=== PATIENT | female | born 1990 | race Caucasian/White ===

== ENCOUNTER → 2016-07-19 | Outpatient (CLI) | payer OTHER ==
--- NOTE | 2016-07-19 18:21 | CONS ---
DATE OF CONSULTATION: 07/19/2016 CONSULTATION/NEW PATIENT EVALUATION 25-year-old lady who has been evaluated in the sleep center problem related to difficulties initiating sleep and multiple awakenings during the sleep and feeling tiredness and sometimes sleepiness during the day. HISTORY OF PRESENT ILLNESS/SLEEP-WAKE EVALUATION: SLEEP SCHEDULE: Patient's usual sleep schedule is from around 11:00 p.m. until 11:00 a.m. FALLING ASLEEP: The patient has problems with falling asleep. She is on treatment and the trazodone at bedtime and it helps her to fall asleep. She has a TV set in bedroom. DURING SLEEP: She wakes up from sleep up to 3 times with up to 2 episodes of nocturia. According to her mother, she snores, positive history of hypnagogic hallucinations by falling asleep. No history of sleep paralysis or cataplexy. [place] Sleepiness Scale is 4. Also positive history of movements at night, kicking the patient covers sometimes out in the morning. DURING THE DAY/WAKE STATE: PAST MEDICAL HISTORY: Positive for ADD, anxiety. PAST SURGICAL HISTORY: Tonsillectomy. MEDICATIONS: 1. Paxil. 2. ( ). 3. Trazodone. SOCIAL HISTORY: Positive for smoking for about half pack a day for 3 years. Alcohol consumption occasional. REVIEW OF SYSTEMS: Multiple awakenings from sleep. Sometimes tiredness and sleepiness during the day. No fevers. No double vision. No recent chest pain. No shortness of breath. No abdominal pain. No bleeding episodes. No blood in urine. No seizure episodes. FAMILY HISTORY: Heart problems, hyperlipidemia, snoring, acid reflux. PHYSICAL EXAMINATION: During physical exam lady without distress. VITAL SIGNS: BP 110/72, HR 88, RR 16. Height 5 feet 6-1/2. Weight 182. BMI 28.9. Neck 14 inches in circumference. Temperature 98.3. Oxygen saturation at room air 90%. HEENT: Oropharynx practically normal position of soft palate refusing. NECK: Supple. No JVD. Thyroid is not palpable. LUNGS: Clear to percussion and to auscultation. Good air exchange. No wheezing or rhonchi. HEART: S1, S2 regular. No murmurs, gallops or rubs. ABDOMEN: Slightly obese. Soft and nontender. Bowel sounds are present. No organomegaly appreciated. EXTREMITIES: No clubbing or cyanosis. GRAIN LOADER: Awake, alert, and oriented x3. Cranial nerves 2 to 7 intact. There is no fasciculation or atrophy noted. No focal deficits observed. IMPRESSION: 1. Snoring, multiple awakenings from sleep rule out obstructive sleep apnea-hypopnea syndrome. 2. Positive history of kicking at night cover sometimes out in the morning, periodic limb movement syndrome. 3. Difficulties to initiate sleep, insomnia, probably secondary to anxiety. 4. Positive history of questionable hypnagogic hallucinations, differential diagnosis include hypersomnia including narcolepsy. 5. Status post tonsillectomy. 6. History of attention deficit hyperactivity disorder. PLAN: 1. Polysomnography for evaluation of patient's breathing during sleep. 2. CPAP/BiPAP titration if sleep study confirms obstructive sleep apnea-hypopnea syndrome. 3. Preferable position during sleep on the side. 4. No driving if patient feels any sleepiness. Patient is aware of civil and criminal liability for unsafe driving. 5. I will see patient for follow-up visit to explain results of the testing and following plan. 6. Multiple sleep latency test if sleep study been negative for obstructive sleep apnea or periodic limb movements. 7. Psychological techniques for treatment of insomnia should include stimulus control, worry time, paradoxical intention. No watching clock. Thank you very much for referring this patient for consultation. Sincerely, Anthony Aggarwal MD, PhD, FAASM. Diplomat of [place] [employer], Sleep Medicine Board by [place] [employer] [place] [employer] [facility] [place]
== END ==
LOC: SLEEP 14:14
PROVIDERS: ATTEND Internal Medicine
DX: R06.83 Snoring (principal); G47.61 Periodic limb movement disorder; Z87.891 Personal history of nicotine dependence; Z79.899 Other long term (current) drug therapy
CPT/HCPCS: 99211

== ENCOUNTER → 2016-08-09 | Outpatient (CLI) | payer OTHER ==
--- NOTE | 2016-08-09 19:28 | PN ---
DATE OF SERVICE: 08/09/2016 25-year-old lady who has been followed in the sleep center to discuss results of the sleep studies and plan of treatment. I discussed with the patient results of polysomnogram and multiple sleep latency test in detail. No significant respiratory abnormalities during polysomnogram following results of scoring hypopneas with 4% of oxygen desaturation criteria. Apnea-hypopnea index only 1.4. No significant oxygen desaturation. Lowest oxygen level 90.5%, very minimal periodic limb movements without significant amount of microarousals. Multiple sleep latency test showed normal mean sleep latency more than 15 minutes. Four sleep onset REM periods have been documented but with absence of documented sleepiness that does not have diagnostic significance. 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 Patient continued to do to feel tiredness and she agreed that she felt tired but not sleepy. MEDICATIONS: 1. Paxil. 2. Vyvanse. 3. Trazodone. During physical exam, the patient in no distress. VITAL SIGNS: BP 111/73, HR 84, RR 16. Height 5 foot 6. Weight 178. BMI 28, temperature 98.4. Oxygen saturation at room air 99%. HEENT: PERRLA, EOMI evaluation of oropharynx showed moderately low position of soft palate. Neck: Supple. No JVD. Thyroid is not palpable. LUNGS: Clear to percussion and to auscultation. Good air exchange. No wheezing or rhonchi. HEART: S1, S2 regular. No murmurs, gallops, or rubs. ABDOMEN: Soft and nontender. Bowel sounds are present. No organomegaly appreciated. EXTREMITIES: No clubbing or cyanosis. LOGISTICS SOLUTION MANAGER: Awake, alert, and oriented x3. Cranial nerves 2 to 7 intact. There is no fasciculation or atrophy noted. No focal deficits observed. IMPRESSION: 1. No significant respiratory abnormalities during the sleep study. 2. Multiple sleep latency test showed normal sleep latency. 3. Sleep onset REM periods documented during MSLT which is not diagnostic for narcolepsy because there was no documented sleepiness. 4. Possible sleep delay syndrome, which may be could explain the presence of REM sleep during MSLT. 5. History of attention deficit hyperactivity disorder. 6. History of anxiety. 7. Mild snoring documented during the sleep study. PLAN: 1. Sleep hygiene with regular time in bed 8-9 hours. 2. Losing weight. 3. Preferably to sleep on the side. 4. No driving if feeling any sleepiness. 5. With the present patient complains of tiredness during the day, consider to change regimen of medication for anxiety. Thank you very much for allowing me to participate in the management of your patient. Sincerely, Anthony Aggarwal MD, PhD, FAASM. Diplomat of [place] [employer], Sleep Medicine Board by [place] [employer] [place]
== END | disposition home or self-care (01) ==
LOC: SLEEP 14:18
PROVIDERS: ATTEND Internal Medicine
DX: R53.83 Other fatigue (principal); R06.83 Snoring; Z79.899 Other long term (current) drug therapy

== ENCOUNTER 2017-03-04 15:55 | Emergency (ER) | payer OTHER ==
[2017-03-04 17:01] LABS: Appearance,Urine Cloudy (Clear); Bilirubin,Urine Negative (Negative); Blood,Urine Moderate (Negative); Color,Urine Light Red; Glucose,Urine (UA) Negative (Negative); Hyaline Casts,Urine 20 /lpf (0-2); Ketones,Urine 4+ (Negative); Leukocyte Esterase,Urine Small (Negative); Mucus,Urine Many /hpf; Nitrite,Urine Negative (Negative); PH, Urine 8.5 (5.0-8.0); Protein,Urine 2+ (Negative); RBC,Urine >182 /hpf (0-5); Specific Gravity,Urine 1.029 (1.001-1.035); Squamous Epithelial Cell,Urine 33 /hpf (0-4); WBC,Urine 2 /hpf (0-5)
[2017-03-04 17:03] LABS: Basophils % (A) 0 %; Eosinophils % (A) 0 %; HCT 42.7 % (34.0-46.0); HGB 14.2 gm/dL (11.4-16.0); Lymphocytes # (A) 0.9 k/uL (1.0-4.8); Lymphocytes % (A) 6 %; MCH 32.4 pg (25.0-35.0); MCHC 33.2 g/dL (31.0-37.0); MCV 97.5 fL (80.0-100.0); Mean Platelet Volume 8.2; Monocytes # (A) 0.6 k/uL (0-1.0); Monocytes % (A) 4 %; Neutrophils # (A) 13.7 k/uL (1.3-7.7); Neutrophils % (A) 89 %; Platelet Count 287 k/uL (150-450); RBC 4.38 m/uL (3.80-5.40); RDW 12.8 % (11.5-15.5); WBC 15.4 k/uL (3.8-10.6)
[2017-03-04 17:11] LABS: ALT 35 U/L (9-52); AST 24 U/L (14-36); Albumin 4.5 g/dL (3.5-5.0); Alkaline Phosphatase 72 U/L (38-126); Anion Gap 9 mmol/L; Blood Urea Nitrogen 10 mg/dL (7-17); Calcium 10.1 mg/dL (8.4-10.2); Carbon Dioxide 29 mmol/L (22-30); Chloride 105 mmol/L (98-107); Glucose 137 mg/dL (74-99); Potassium 3.7 mmol/L (3.5-5.1); Sodium 143 mmol/L (137-145); Total Bilirubin 0.7 mg/dL (0.2-1.3); Total Protein 7.5 g/dL (6.3-8.2)
[2017-03-04] MEDS ORDERED: KETOROLAC 30 MG/ML 1 ML VIAL IVP ONE (17:43)
[2017-03-04] MEDS ORDERED: SODIUM CHLORIDE 0.9% 1,000 ML IV ONE (17:45)
--- NOTE | 2017-03-04 17:47 | ED ---
Abdominal Pain HPI - General Chief Complaint: Abdominal Pain Stated Complaint: Vomiting Time Seen by Provider: 03/04/17 16:28 Source: patient Mode of arrival: wheelchair Limitations: no limitations - History of Present Illness Initial Comments: Joy is a 26-year-old female with no significant past medical history presents to the emergency department today for evaluation of right lower quadrant abdominal pain. Patient reports she woke around 9 AM with a severe stabbing in her right flank that is radiating towards her right pelvis. Pain is progressively worsened throughout the day become unbearable. Pain is associated with nausea and multiple episodes of nonbloody nonbilious emesis. Patient denies any hematuria, dysuria, urinary frequency. She denies any diarrhea or constipation. She does report anorexia but associates this with the pain. She has no history of kidney stones. No family history of kidney stones. She has no history of ovarian pathology or known ovarian cysts. She does so have her appendix in place. Denies any fevers, chest pain, palpitations, lightheadedness. She does report episodes of diaphoresis associated with waves of pain and nausea. - Related Data Home Medications Medication Instructions Recorded Confirmed Ibuprofen [Motrin] 800 mg PO BID PRN 03/04/17 03/04/17 Lisdexamfetamine Dimesylate 50 mg PO DAILY 03/04/17 03/04/17 [Vyvanse] PARoxetine HCL [Paxil] 30 mg PO DAILY 03/04/17 03/04/17 traZODone HCL [Desyrel] 50 mg PO HS 03/04/17 03/04/17 Previous Rx's Medication Instructions Recorded Acetaminophen with Codeine 1 tab PO Q4H #4 tab 03/04/17 [Tylenol w/codeine #3] Acetaminophen-Codeine 300-30mg 1 tab PO Q4H PRN #4 tablet 03/04/17 [Tylenol #3] Allergies Allergy/AdvReac Type Severity Reaction Status Date / Time No Known Allergies Allergy Verified 03/04/17 16:52 Review of Systems ROS Statement: Those systems with pertinent positive or pertinent negative responses have been documented in the HPI. ROS Other: All systems not noted in ROS Statement are negative. Constitutional: Reports: chills ENT: Denies: throat pain Respiratory: Denies: cough Cardiovascular: Denies: chest pain, palpitations Endocrine: Denies: fatigue Gastrointestinal: Reports: abdominal pain, nausea, vomiting. Denies: diarrhea, constipation Genitourinary: Denies: urgency, dysuria, frequency Musculoskeletal: Reports: back pain Skin: Denies: rash Neurological: Denies: headache Psychiatric: Denies: depression Hematological/Lymphatic: Denies: easy bleeding Past Medical History Past Medical History: No Reported History History of Any Multi-Drug Resistant Organisms: None Reported Past Surgical History: Tonsillectomy Past Psychological History: No Psychological Hx Reported Smoking Status: Current every day smoker Past Alcohol Use History: Occasional Past Drug Use History: Marijuana General Exam Limitations: no limitations General appearance: alert, other (Appears Uncomfortable) Head exam: Present: atraumatic, normocephalic Eye exam: Present: normal appearance, PERRL ENT exam: Present: normal exam Neck exam: Present: normal inspection Respiratory exam: Present: normal lung sounds bilaterally. Absent: respiratory distress Cardiovascular Exam: Present: regular rate, normal rhythm GI/Abdominal exam: Present: soft. Absent: distended, tenderness, guarding, rebound Rectal exam: Present: deferred Extremities exam: Present: normal inspection Back exam: Present: normal inspection Neurological exam: Present: alert, oriented X3 Psychiatric exam: Present: normal affect Skin exam: Present: warm, dry, intact, normal color Course Vital Signs 03/04/17 03/04/17 16:23 19:08 Temperature 97 F L 97.8 F Pulse Rate 65 68 Respiratory 18 16 Rate Blood Pressure 134/99 130/70 O2 Sat by Pulse 100 98 Oximetry Medical Decision Making - Medical Decision Making Patient was seen and evaluated. History was obtained from the patient and her mother at bedside As ago exam is concerning for a right-sided flank pain with radiation into the right groin. Patient has no pain on palpation of the abdomen, no pain to deep palpation of the right lower quadrant. At this time and a high suspicion for kidney stone and a very low suspicion for appendicitis or bowel pathology Patient is currently menstruating so I do suspect there will be some contamination of the urine sample Labs and urinalysis were ordered Analysis with gross hematuria as well as contamination no evidence of urinary tract infection Labs reveal leukocytosis as well as a creatinine of 1.1, patient has no known history of kidney injury or chronic kidney disease - again this reinforces my suspicion for nephrolithiasis. I discussed with the patient and family the risks and benefits of computed tomography scan versus ultrasound. At this time the patient would prefer a computed tomography scan, despite the radiation exposure. Morphine and Toradol ordered for analgesia Patient tolerated computed tomography scan which revealed a small distal right nephrolithiasis with minimal obstruction and moderate hydronephrosis of the right ureter and kidney these findings were discussed with the patient and mother bedside. Patient reports complete resolution of her symptoms after the morphine and Toradol. She reports she is now comfortable and she does feel that she might of passed the stone into her bladder. I discussed with the patient the need to strain her urine to collect the stone for any pathology, considering this is her first stone she doesn't feel that that is necessary and does not want to strain her urine All questions pertaining to care were answered to the best my ability patient was discharged home in stable condition. Patient was given narcotic analgesia for any recurrent pain and advised to otherwise maintain oral hydration. - Lab Data Result diagrams: 03/04/17 16:54 03/04/17 16:54 Lab Results 03/04/17 03/04/17 03/04/17 Range/Units 16:50 16:50 16:54 WBC 15.4 H (3.8-10.6) k/uL RBC 4.38 (3.80-5.40) m/uL Hgb 14.2 (11.4-16.0) gm/dL Hct 42.7 (34.0-46.0) % MCV 97.5 (80.0-100.0) fL MCH 32.4 (25.0-35.0) pg MCHC 33.2 (31.0-37.0) g/dL RDW 12.8 (11.5-15.5) % Plt Count 287 (150-450) k/uL Neutrophils % 89 % Lymphocytes % 6 % Monocytes % 4 % Eosinophils % 0 % Basophils % 0 % Neutrophils # 13.7 H (1.3-7.7) k/uL Lymphocytes # 0.9 L (1.0-4.8) k/uL Monocytes # 0.6 (0-1.0) k/uL Eosinophils # 0.0 (0-0.7) k/uL Basophils # 0.0 (0-0.2) k/uL Sodium (137-145) mmol/L Potassium (3.5-5.1) mmol/L Chloride (98-107) mmol/L Carbon Dioxide (22-30) mmol/L Anion Gap mmol/L BUN (7-17) mg/dL Creatinine (0.52-1.04) mg/dL Est GFR (MDRD) Af Amer (>60 ml/min/1.73 sqM) Est GFR (MDRD) Non-Af (>60 ml/min/1.73 sqM) Glucose (74-99) mg/dL Calcium (8.4-10.2) mg/dL Total Bilirubin (0.2-1.3) mg/dL AST (14-36) U/L ALT (9-52) U/L Alkaline Phosphatase (38-126) U/L Total Protein (6.3-8.2) g/dL Albumin (3.5-5.0) g/dL Urine Color Light Red Urine Appearance Cloudy H (Clear) Urine pH 8.5 H (5.0-8.0) Ur Specific [place] 1.029 (1.001-1.035) Urine Protein 2+ H (Negative) Urine Glucose (UA) Negative (Negative) Urine Ketones 4+ H (Negative) Urine Blood Moderate H (Negative) Urine Nitrite Negative (Negative) Urine Bilirubin Negative (Negative) Urine Urobilinogen 3.0 (<2.0) mg/dL Ur Leukocyte Esterase Small H (Negative) Urine RBC >182 H (0-5) /hpf Urine WBC 2 (0-5) /hpf Ur Squamous Epith Cells 33 H (0-4) /hpf Hyaline Casts 20 H (0-2) /lpf Urine Mucus Many H (None) /hpf Urine HCG, Qual Not Detected (Not Detectd) 03/04/17 Range/Units 16:54 WBC (3.8-10.6) k/uL RBC (3.80-5.40) m/uL Hgb (11.4-16.0) gm/dL Hct (34.0-46.0) % MCV (80.0-100.0) fL MCH (25.0-35.0) pg MCHC (31.0-37.0) g/dL RDW (11.5-15.5) % Plt Count (150-450) k/uL Neutrophils % % Lymphocytes % % Monocytes % % Eosinophils % % Basophils % % Neutrophils # (1.3-7.7) k/uL Lymphocytes # (1.0-4.8) k/uL Monocytes # (0-1.0) k/uL Eosinophils # (0-0.7) k/uL Basophils # (0-0.2) k/uL Sodium 143 (137-145) mmol/L Potassium 3.7 (3.5-5.1) mmol/L Chloride 105 (98-107) mmol/L Carbon Dioxide 29 (22-30) mmol/L Anion Gap 9 mmol/L BUN 10 (7-17) mg/dL Creatinine 1.11 H (0.52-1.04) mg/dL Est GFR (MDRD) Af Amer >60 (>60 ml/min/1.73 sqM) Est GFR (MDRD) Non-Af 59 (>60 ml/min/1.73 sqM) Glucose 137 H (74-99) mg/dL Calcium 10.1 (8.4-10.2) mg/dL Total Bilirubin 0.7 (0.2-1.3) mg/dL AST 24 (14-36) U/L ALT 35 (9-52) U/L Alkaline Phosphatase 72 (38-126) U/L Total Protein 7.5 (6.3-8.2) g/dL Albumin 4.5 (3.5-5.0) g/dL Urine Color Urine Appearance (Clear) Urine pH (5.0-8.0) Ur Specific [place] (1.001-1.035) Urine Protein (Negative) Urine Glucose (UA) (Negative) Urine Ketones (Negative) Urine Blood (Negative) Urine Nitrite (Negative) Urine Bilirubin (Negative) Urine Urobilinogen (<2.0) mg/dL Ur Leukocyte Esterase (Negative) Urine RBC (0-5) /hpf Urine WBC (0-5) /hpf Ur Squamous Epith Cells (0-4) /hpf Hyaline Casts (0-2) /lpf Urine Mucus (None) /hpf Urine HCG, Qual (Not Detectd) Disposition Clinical Impression: Kidney stone on right side Disposition: HOME SELF-CARE Condition: Good Instructions: Kidney Stones (ED), Renal Colic (ED) Prescriptions: Acetaminophen with Codeine [Tylenol w/codeine #3] 1 tab PO Q4H #4 tab Acetaminophen-Codeine 300-30mg [Tylenol #3] 1 tab PO Q4H PRN #4 tablet PRN Reason: Pain Referrals: Siri Berman DO [Primary Care Provider] - 1-2 days Time of Disposition: 18:45
--- NOTE | 2017-03-04 18:32 | CT ---
EXAMINATION TYPE: CT renal stones wo con DATE OF EXAM: 03/04/2017 HISTORY: Right sided pain CT DLP: 350.4 mGycm. Automated Exposure Control for Dose Reduction was Utilized. TECHNIQUE: CT scan of the abdomen and pelvis is performed without oral or IV contrast. COMPARISON: NONE Findings Lung bases are clear. There is no pleural effusion. Heart size is normal. Liver spleen pancreas gallbladder appear normal. Bile ducts are not dilated. Th ere is no adrenal mass. There is right-sided hydronephrosis and hydroureter. There is a possible 2 mm calcification in the lo wer right ureter. Bladder distends smoothly. There is no pelvic mass. Uterus is retroverted. Bony str uctures are intact. I see no intestinal wall thickening. There are no dilated loops. Appendix appears normal. CONCLUSION: Right-sided hydronephrosis and hydroureter with probably a very small stone in the lower right ureter . Normal appendix.
[2017-03-04 19:10] VITALS: BP 130/70; PULSE 68; RESP 16; TEMP 97.8
== END 2017-03-04 19:08 | disposition home or self-care (01) ==
LOC: EC 15:55
DX: N13.2 Hydronephrosis with renal and ureteral calculous obstruction (principal); D72.829 Elevated white blood cell count, unspecified; R61 Generalized hyperhidrosis; R63.0 Anorexia; F17.200 Nicotine dependence, unspecified, uncomplicated; Z79.899 Other long term (current) drug therapy
CPT/HCPCS: 36415; 80053; 85025; 81001; 81025; 74150; 99284; 96374; 96361; J1885

== ENCOUNTER 2020-08-17 11:06 | Day surgery (SDC) | payer OTHER ==
[2020-08-15 15:52] VITALS: BMI 25.8
[~2020-08-17 11:06] MED LIST: DEXAMETHASONE SOD PHOSPHATE 4 MG/ML 1 ML VIAL IV ONE; FAMOTIDINE 20 MG/2 ML VIAL IV PRN; HYDROmorphone 0.5 MG/0.5 ML SYRINGE IVP PRN; ONDANSETRON 4 MG/2 ML VIAL IVP ONE; Pre Op ABX Message 1 EACH MISC MISCELLANE ONE
[2020-08-17] MEDS: LACTATED RINGERS 1,000 ML IV SCH ×2 (11:55→12:51)
[2020-08-17] MEDS ORDERED: LIDOCAINE 1% (10MG/ML) FOR IV START INTRADERMA ONE (11:55)
[2020-08-17] MEDS ORDERED: MIDAZOLAM 2 MG/2 ML VIAL IV ONE (12:20)
[2020-08-17] MEDS ORDERED: fentaNYL (PF) 50 MCG/ML 2 ML AMP IV ONE (12:20)
--- NOTE | 2020-08-17 12:45 | P.ANPRN ---
Procedure Note - Anesthesia - Nerve Block Performed Right Popliteal Single Time Out Performed: Yes Date of Procedure: 08/17/20 Procedure Start Time: 12:28 Procedure Stop Time: 12:36 Location of Patient: PreOp Indication: Acute Post-Operative Pain, Dx/Pain Location, Requested by Surgeon Specifically requested for management of pain by DrPearl: Lavell Orozco Sedation Type: Sedate with meaningful contact maintained Preparation: Sterile Prep Position: Left Lateral Catheter: None Needle Types: Pajunk Needle Gauge: 20 Ultrasound used to visualize needle placement: Yes Ultrasound used to observe medication spread: Yes Injectate: 0.5% Ropivacaine (see comment for volume) Blood Aspirated: No Pain Paresthesia on Injection Noted: No Resistance on Injection: Normal Image Stored and Saved: Yes Events: Uneventful and Well Tolerated (30cc 0.5% Ropivacaine)
[2020-08-17] MEDS ORDERED: PROPOFOL 10 MG/ML 20 ML VIAL IV ONE (12:50)
[2020-08-17] MEDS ORDERED: SUCCINYLCHOLINE CHLORIDE 100 MG/5 ML SYR IV ONE (12:50)
[2020-08-17] MEDS ORDERED: ROCURONIUM 10 MG/ML (5 ML VIAL) IV ONE (12:50)
[2020-08-17] MEDS ORDERED: LIDOCAINE 1% INJ 10MG/ML (20 ML MDV) ONE (12:50)
[2020-08-17] MEDS ORDERED: MIDAZOLAM 2 MG/2 ML VIAL ONE (12:50)
[2020-08-17] MEDS ORDERED: fentaNYL (PF) 50 MCG/ML 2 ML AMP ONE (12:50)
[2020-08-17] MEDS ORDERED: ceFAZolin 1,000 MG in SODIUM CHLORIDE 0.9% 1,000 ML IRRIGATION ONE (13:18)
[2020-08-17 13:56] VITALS: TEMP 96.8
[2020-08-17 14:08] VITALS: RESP 16
--- NOTE | 2020-08-17 14:12 | P.OP ---
Date of Procedure: 08/17/20 Preoperative Diagnosis: Right lateral ankle instability Postoperative Diagnosis: Same Procedure(s) Performed: Secondary repair right lateral ankle ligaments Implants: Arthrex internal brace, 2 Arthrex fiber Martir anchors Anesthesia: CANDACEA Surgeon: Lavell Orozco Estimated Blood Loss (ml): 2 Pathology: none sent Condition: stable Disposition: PACU Indications for Procedure: Chronic ankle instability and pain following injury Description of Procedure: Prior to the patient being brought to the operating room anesthesia administered a popliteal and saphenous nerve block on the right lower extremity, using ultrasonic guidance and mild sedation. The patient was then brought into the operating room and placed on table supine position. Timeout was taken to confirm correct patient identifiers, correct procedure, and correct site of surgery. When the room was in agreement the patient was placed under general anesthetic. A well-padded tourniquet was placed on the right calf. A bump was placed underneath the right hip to int ernally rotate the right leg. And then the right leg was prepped and draped in the usual manner. The right leg was exsanguinated and the tourniquet inflated to 250 motors mercury. Attention was directed over the lateral ankle were curved incision was made just anterior to the lateral malleolus. The incision was deepened down to the subcutaneous layer careful to identify him a avoid and retract any neurovascular structures and cauterize any bleeding vessels. Blunt dissection was continued down to the lateral ankle joint capsule. Soft tissue was incised off the anterior surface the lateral malleolus. The cortical bone was removed from anterior surface lateral malleolus and the roughened edges smoothed. With the ankle held in neutral position the capsule was palpated over the neural aspect of the talus, with the junction of the body and neck were identified. A small stab incision was made through the capsule and then a 3.4 mm drill bit was used to create the drill hole for the 4.75 anchor. The hole was tapped and then the anchor inserted and lightly impacted and advanced to proper depth. The same drill was used to drill the hole in the lateral malleolus for the 3.5 mm anchor. Then the drills for the fiber Pardeep anchors were created drill holes in the lateral malleolus one inferior and one superior to the 3.4 mm drill hole. The fiber Pardeep anchors were inserted and impacted to proper depth. The key filer was removed and then tension placed on the suture to lock it in place. The wound is then thoroughly irrigated with antibiotic saline. The lateral soft tissue structures were sutured with the fiber Pardeep anchors and then the suture was tied while holding the ankle maximally everted and dorsiflexed. The 2 arms of the internal brace suture were then placed through the 3.5 mm anchor key filer. Then with the ankle in neutral inversion and eversion, as well as mild gravity equinus, proper tensioning techniques were utilized for the suture and then was placed in the drill hole the lateral malleolus and the anchor advanced to lock the suture in place. The ankle was then tested for stability which noted that there was negative anterior drawer or inversion stress. The fiber Pardeep suture was then used to sew the soft tissue flap from the fibula over the repair site in a pants over vest fashion. The wound is again irrigated with antibiotic saline. Subcutaneous closure was completed with 4-0 Monocryl. Skin skin closure was done with 4-0 Stratafix in a running subcuticular manner. Dermal glue was applied around the incision and allowed to dry. Steri-Strips are placed over the incision. An Arthrex jumpstart dressing was applied to the incision and a dry sterile dressings applied to the right foot and ankle. The tourniquet was released and capillary refill return to all digits on the right foot. Patient placed in a below-knee fracture boot ankle neutral position. Anesthesia was reversed and the patient was taken recovery vital signs stable.
[2020-08-17 15:00] VITALS: BP 125/76; PULSE 59
== END 2020-08-17 15:30 | disposition home or self-care (01) ==
LOC: OR 11:06
PROVIDERS: ATTEND Podiatrist
DX: M25.371 Other instability, right ankle (principal); S93.411A Sprain of calcaneofibular ligament of right ankle, initial encounter; S93.421A Sprain of deltoid ligament of right ankle, initial encounter; X50.1XXA Overexertion from prolonged static or awkward postures, initial encounter; F32.9 Major depressive disorder, single episode, unspecified; Z97.3 Presence of spectacles and contact lenses; Z90.89 Acquired absence of other organs; F17.290 Nicotine dependence, other tobacco product, uncomplicated; Z79.899 Other long term (current) drug therapy
CPT/HCPCS: 27698; C1713 ×2; J2250; J1100; J0690 ×2; J2405; J2001; J3010; J0330; J2704